=== PATIENT | female | born 1975 | race Caucasian/White ===

== ENCOUNTER 2016-09-26 21:45 | Emergency (ER) | payer SELFPAY ==
[~2016-09-26] VITALS: Ht 165.1 cm; Wt 72.0 kg
[~2016-09-26 21:45] MED LIST: HYDR25TA6 PO; LISI1TAB3 PO; VENL75CA PO
[2016-09-26 23:41] VITALS: BP 151/86
== END 2016-09-27 01:09 | disposition home or self-care (01) ==
LOC: ED 23:59
DX: S06.0X0A Concussion without loss of consciousness, initial encounter (principal); F10.120 Alcohol abuse with intoxication, uncomplicated; Y08.89XA Assault by other specified means, initial encounter; Y93.89 Activity, other specified; Y92.89 Other specified places as the place of occurrence of the external cause; Y99.2 Volunteer activity
CPT/HCPCS: 70450; 70486; 71010; 72125

== ENCOUNTER 2016-11-13 18:51 | Emergency (ER) | payer SELFPAY ==
[~2016-11-13] VITALS: Ht 177.8 cm; Wt 90.0 kg
[2016-11-13 19:50] LABS: BLOOD UREA NITROGEN 9 mg/dL (7-18)
[2016-11-13 19:56] LABS: ACETAMINOPHEN 10 mcg/mL (10-30)
[2016-11-14] MEDS ORDERED: IBUPROFEN 200 MG TABLET ONE (01:50)
[2016-11-14] MEDS ORDERED: IBUPROFEN 200 MG TABLET PO ONE (02:00)
[2016-11-14 02:05] LABS: DAU SCREEN DISCLAIMER
[2016-11-14] MEDS ORDERED: DOXEPIN 10 MG CAPSULE PO ONE (03:30)
[2016-11-14] MEDS ORDERED: VENLAFAXINE 75 MG CAP ER PO ONE (03:30)
[2016-11-14] MEDS ORDERED: LISINOPRIL 10 MG TABLET PO ONE (04:30)
[2016-11-14] MEDS ORDERED: LISINOPRIL 20 MG TABLET ONE (04:30)
[2016-11-14 05:06] VITALS: BP 165/99
== END 2016-11-14 05:11 | disposition home or self-care (01) ==
LOC: ED 23:59
DX: R45.851 Suicidal ideations (principal); F10.129 Alcohol abuse with intoxication, unspecified; I10 Essential (primary) hypertension; F32.9 Major depressive disorder, single episode, unspecified
CPT/HCPCS: 36415; 71010; 80048; 80307; 80329; 82040; 84703; 85025; G0480

== ENCOUNTER 2016-12-15 16:52 | Emergency (ER) | payer SELFPAY ==
[~2016-12-15] VITALS: Ht 175.3 cm; Wt 79.0 kg
[2016-12-15] MEDS ORDERED: SODIUM CHLORIDE FLUSH 10ML SYR IVF ONE (17:30)
[2016-12-15] MEDS ORDERED: SODIUM CHLORIDE 0.9% 1,000ML IVBOLUS ONE (17:30)
[2016-12-15 18:09] LABS: BLOOD UREA NITROGEN 11 mg/dL (7-18)
[2016-12-15 18:13] LABS: IS PT STATUS REG ER OR PRE ER? YES
[2016-12-15 18:14] LABS: ASPARTATE AMINO TRANSFERASE 46 U/L (15-37)
[2016-12-15 18:26] LABS: DIFF TOTAL CELLS COUNTED 100 CELL DIFF
[2016-12-15] MEDS ORDERED: DIPHENHYDRAMINE 25 MG CAPSULE PO ONE (18:30)
[2016-12-15] MEDS ORDERED: DIPHENHYDRAMINE 50 MG CAPSULE ONE (18:32)
[2016-12-15 18:56] LABS: VERIFY COUNTS? YES
[2016-12-15 19:23] VITALS: BP 167/101
== END 2016-12-15 21:05 | disposition home or self-care (01) ==
LOC: ED 20:59
DX: E86.0 Dehydration (principal); L03.818 Cellulitis of other sites; L59.0 Erythema ab igne [dermatitis ab igne]; R11.0 Nausea; I10 Essential (primary) hypertension
CPT/HCPCS: 36415; 80053; 81003; 83690; 84484; 85025; 93005; 96360; 96361; 99285; J7030; Q0163